=== PATIENT | female | born 1990 | race American Indian/Alaskan Native ===

== ENCOUNTER 2021-05-20 21:05 | Inpatient (IN) | payer MEDICAID ==
[2021-05-20] MEDS ORDERED: LACTATED RINGERS 1,000 ML IV SCH (21:15)
[2021-05-20] MEDS ORDERED: OXYTOCIN DRIP 30 UNITS/500 ML BAG IV SCH (22:00)
[2021-05-21 01:29] LABS: Basophils # (Auto) 0.1 K/mm3 (0.0-0.1); Basophils % (Auto) 0.5 % (0.0-1.8); Eosinophils # (Auto) 0.3 K/mm3 (0.0-0.4); Eosinophils % (Auto) 2.6 % (0.0-4.3); Hematocrit 30.5 % (30.3-42.9); Hemoglobin 9.8 gm/dl (10.1-14.3); Lymphocytes # (Auto) 2.9 K/mm3 (1.2-5.4); Mean Corpuscular HGB Conc 32 % (30-34); Mean Corpuscular Volume 84 fl (79-97); Monocytes # (Auto) 1.2 K/mm3 (0.0-0.8); Monocytes % (Auto) 8.6 % (0.0-7.3); Platelet Count 316 K/mm3 (140-440); Red Blood Count 3.61 M/mm3 (3.65-5.03); Red Cell Distribution Width 19.6 % (13.2-15.2)
[2021-05-21 01:51] LABS: Alanine Aminotransferase 7 units/L (7-56); Albumin 3.5 g/dL (3.9-5); Blood Urea Nitrogen 7 mg/dL (7-17); Calcium 8.6 mg/dL (8.4-10.2); Hemolysis Index 1; Uric Acid 4.8 mg/dL (3.5-7.6)
[2021-05-21 01:58] LABS: BUN/Creatinine Ratio 14
--- NOTE | 2021-05-21 02:56 | History and Physical Report ---
History of Present Illness Date of examination: 05/21/21 Date of admission: 05/20/21 23:09 Chief complaint: sent from clinic to [facility] for eval and delivery with frequent contractions History of present illness: at 41.2wks by LMP c/w u/s with limited care [facility]. Pt was sent by Dr. Garrett to be seen for non-reactive NST in clinic and needs repeat c/section with frequent contractions; Pt went via to ambulance to [facility] instead and they had no beds, called [facility] and asked if they could send pt here. Pelvic exam per report for OB avionics systems engineer MD states pt was not dilated however with frequent contractions. I accepted pt and she came via [employer]. pt denies leakage of fluid or vag bleeding or headache. pt admits to movement. Pt has been non-compliant and not taken any iron pills with known anemia. Pt quit smoking at 4months preg. Pt also now states that she has asthma and used inhaler daily these past 4days. labs with O positive, neg screen, hgb 9.2, rubella immune, RPR non-reactive, HIV negative and GC/Chlam negative. Pt states she took the 1hrgtt and clinic chart pt did not. NO results seen. Past History Past Medical History: other (anemia, asthma (not previously stated in records)) Past Surgical History: section (x2) Social history: smoking (quit at 4months) - Obstetrical History Expected Date of Delivery: 05/12/21 Actual Gestation: 41 Week(s) 2 Day(s) : 3 Hx # Term Pregnancies: 2 (both c/section, 1st for NRFHR) Number of Living Children: 2 Medications and Allergies Allergies Allergy/AdvReac Type Severity Reaction Status Date / Time No Known Allergies Allergy Verified 05/21/21 03:26 Active Meds: Active Medications Citric Acid/Sodium Citrate (Bicitra Oral Liqd 30ml) 30 ml PO ONCE ONE Stop: 05/20/21 21:12 Famotidine (Famotidine 20 Mg/2 Ml Inj) 20 mg IV ONCE ONE Stop: 05/20/21 21:12 Cefazolin Sodium (Ancef/Sterile Water 2 Gm/20 Ml) 2 gm in 20 mls @ 80 mls/hr IV PREOP NR; Protocol Lactated Ringer's (Lactated Ringers) 1,000 mls @ 2,250 mls/hr IV PREOP MECHE Stop: 05/21/21 21:42 Oxytocin/Sodium Chloride (Pitocin/Ns 30 Unit/500ml) 30 units in 500 mls @ 0 m ls/hr IV TITR MECHE; Protocol Metoclopramide HCl (Metoclopramide 10 Mg/2 Ml Inj) 10 mg IV ONCE ONE Stop: 05/20/21 21:12 Review of Systems All systems: negative (feeling ctx) - Vital Signs Vital signs: Vital Signs Pulse Pulse Ox 93 H 96 05/21/21 01:59 05/21/21 01:59 Temp Pulse Resp BP Pulse Ox 97.5 F L 89 16 107/64 97 05/21/21 02:00 05/21/21 02:44 05/21/21 02:00 05/21/21 02:01 05/21/21 02:44 - Physical Exam Breasts: Positive: deferred Cardiovascular: Regular rate Lungs: Positive: Normal air movement Abdomen: Positive: normal appearance, soft Uterus: Positive: enlarged (non-tender, gravid) - Obstetrical FHR: category 1 Uterine Contraction Monitor Mode: External Cervical Dilatation: 0 (per [facility] report) Uterine Contraction Pattern: Regular Results Result Diagrams: 05/21/21 01:13 05/21/21 01:13 Abnormal lab results 05/21/21 05/21/21 05/21/21 Range/Units 01:13 01:13 01:13 WBC 13.6 H (4.5-11.0) K/mm3 RBC 3.61 L (3.65-5.03) M/mm3 Hgb 9.8 L (10.1-14.3) gm/dl MCH 27 L (28-32) pg RDW 19.6 H (13.2-15.2) % Dyer % (Auto) 8.6 H (0.0-7.3) % Dyer # (Auto) 1.2 H (0.0-0.8) K/mm3 Seg Neutrophils # 9.2 H (1.8-7.7) K/mm3 Sodium 136 L (137-145) mmol/L Carbon Dioxide 20 L (22-30) mmol/L Creatinine 0.5 L (0.6-1.2) mg/dL Alkaline Phosphatase 151 H (35-129) units/L Lactate Dehydrogenase 184 H (91-180) units/L Albumin 3.5 L (3.9-5) g/dL All other labs normal. Assessment and Plan Post term pt at 41.2wks with previous section x2 and now with persistent contractions; Asymptomatic anemia; Non-compliant; H/O Asthma 1. Admit to labor and delivery for repeat section, brethine x1 dose until blood available 2. Send labs, including urine drug screen and cross match for 2units PRBC 3. Consents obtained, NICU and Anesthesiologist notified All questions encouraged and answered
[2021-05-21] MEDS ORDERED: ceFAZolin/Water 2 GM/20 ML 2 GM/20 ML SYRINGE IV NR (03:00)
[2021-05-21] MEDS ORDERED: LACTATED RINGERS 1,000 ML ONE ×2 (03:14→05:12)
[2021-05-21] MEDS ORDERED: TERBUTALINE 1 MG/1 ML INJ SUB-Q ONE (03:16)
[2021-05-21] MEDS ORDERED: SODIUM CHLORIDE 0.9% 500 ML 500 ML IV NR (03:28)
[2021-05-21] MEDS ORDERED: METOCLOPRAMIDE 10 MG/2 ML INJ IV ONE (03:30)
[2021-05-21] MEDS ORDERED: FAMOTIDINE 20 MG/2 ML INJ IV ONE (03:30)
[2021-05-21] MEDS ORDERED: BICITRA ORAL LIQD 30ML PO ONE (03:30)
[2021-05-21] MEDS ORDERED: PROMETHAZINE 25 MG RECT SUPP PR PRN (04:05)
[2021-05-21] MEDS ORDERED: NALOXONE 0.4 MG/1 ML INJ IV PRN ×2 (04:05→06:59)
[2021-05-21] MEDS ORDERED: PROMETHAZINE 25 MG TAB PO PRN (04:05)
[2021-05-21] MEDS ORDERED: HYDROmorphone 1 MG/1 ML INJ IV PRN (04:05)
[2021-05-21] MEDS ORDERED: ONDANSETRON 4 MG/2 ML INJ IV PRN (04:05)
[2021-05-21] MEDS ORDERED: NalbUPHINE 10 MG/1 ML INJ IV PRN (04:05)
[2021-05-21] MEDS ORDERED: diphenhydrAMINE 50 MG/ML VIAL IV PRN (04:05)
--- NOTE | 2021-05-21 04:06 | Anesthesia Day of Surgery ---
Anesthesia Day of Surgery - Day of Surgery Patient Examined: Yes Patient H&P Reviewed: Yes Patient is NPO: Yes Beta Blockers: No Cardiac Clearance: No Pulmonary Clearance: No Tristan's Test: N/A
--- NOTE | 2021-05-21 04:07 | Anesthesia Consultation ---
Anesthesia Consult and Med Hx Date of service: 05/21/21 - Airway Anesthetic Teeth Evaluation: Good ROM Head & Neck: Adequate Mental/Hyoid Distance: Adequate Mallampati Class: Class II Intubation Access Assessment: Probably Good - Pulmonary Exam CTA: Yes - Cardiac Exam Cardiac Exam: RRR - Pre-Operative Health Status ASA Pre-Surgery Classification: ASA2 Proposed Anesthetic Plan: Spinal Nerve Block: TAP - Pulmonary Hx Smoking: Yes Hx Asthma: Yes COPD: No Hx Pneumonia: No Hx Sleep Apnea: No - Cardiovascular System Hx Hypertension: No Hx Heart Attack/AMI: No Hx Angina: No - Gastrointestinal Hx Gastroesophageal Reflux Disease: No - Endocrine Hx Renal Disease: No Hx End Stage Renal Disease: No Hx Liver Disease: No Hx Insulin Dependent Diabetes: No Hx Non-Insulin Dependent Diabetes: No - Additional Comments Anesthesia Medical History Comments: C/S x2
[2021-05-21] MEDS ORDERED: KETOROLAC 30 MG/1 ML INJ ONE (04:15)
[2021-05-21] MEDS ORDERED: BUPIVACAINE/PF (0.5%) 5 MG/1 ML 30 ML VIAL INFILTRATI ONE (04:15)
[2021-05-21] MEDS ORDERED: ONDANSETRON 4 MG/2 ML INJ ONE (04:15)
[2021-05-21] MEDS ORDERED: dexAMETHasone 20 MG/5 ML VIAL ONE (04:15)
[2021-05-21] MEDS ORDERED: ALBUTEROL 8.5 GM MDI INHALATION IH ONE (04:40)
[2021-05-21] MEDS ORDERED: PHENYLEPHRINE/NS 1,000 MCG/10 ML SYRINGE (OR USE) IV ONE (04:40)
[2021-05-21] MEDS ORDERED: ePHEDrine SULFATE 50 MG/1 ML INJ ONE (04:56)
[2021-05-21 05:14] LABS: Amphetamine Screen,Urine PRESUMPTIVE NEGATIVE; Benzodiazepines Screen,Urine PRESUMPTIVE NEGATIVE; Cannabinoid Screen,Urine PRESUMPTIVE POSITIVE; Cocaine Screen,Urine PRESUMPTIVE NEGATIVE; Methadone Screen,Urine PRESUMPTIVE NEGATIVE; Opiate Screen,Urine PRESUMPTIVE NEGATIVE
[2021-05-21] MEDS ORDERED: miSOPROStol 200 MCG TAB ONE (05:41)
[2021-05-21] MEDS ORDERED: fentaNYL 100 MCG/2 ML INJ ONE (06:07)
--- NOTE | 2021-05-21 06:26 | Progress Note ---
Spinal Anesthesia Block - Spinal Anesthesia Block Start Time: 04:20 Stop Time: 04:30 Performed by:: ANITRA CASTREJON Procedure: Spinal anesthesia block is being performed for [C/S]. H&P, labs have been reviewed. Patient's questions and concerns have been answered. Informed consent has been performed. Timeout has was performed. Patient in sitting position on side of bed. Sterile prep and drape was performed. 3 mL 1% lidocaine skin wheal at L [3]-L [4]. Needle introducer advanced. 25-gauge spinal needle advanced, [+] CSF [-] blood. [Marcaine 10mg and Precedex 5mcg] Spinal dose was given. All needles removed. Patient tolerated procedure well.
--- NOTE | 2021-05-21 06:58 | Procedure Note ---
OB Delivery Note - Delivery Date of Delivery: 05/21/21 Surgeon: CAMILLE MULLIGAN Estimated blood loss: other (657cc) - Section Preop diagnosis: repeat , other (Frequent contractions, ?early labor; IUP at 41.3wks; Anemia; Non-compliant) Postop diagnosis: same (and partial abruption; extensive intra-abdominal adhesions with uterus to anterior abd wall and omentum and bladder peritoneum) section procedure: repeat low transverse Disposition: floor Complications: other Narrative: Date: 05/21/21 Surgeon: Camille Mulligan MD Preop Dx: IUP at 41.3wks, previous c/section x2 and frequent contractions, ?early labor; Anemia; Non-compliant Postop Dx: same and partial abruption Procedure : Repeat low transverse and lysis of extensive adhesions Anesthesia: Spinal Intake: 2500cc Output: 50cc clear urine EBL: 657cc via QBL After the risks, benefits and alternatives of procedure discussed, patient signed consents and was taken to the operating room. Pt was given spinal anesthesia. After same was adequate, patient was prepped and draped in the usual sterile fashion. Juarez catheter placed and draining clear urine. Pt was given prophylactic antibiotic per protocol and time out was done Pfannenstiel skin incision was made below the upper c/section scar and taken s harply to the fascia and the incision extended using electrocautery. Superior edge of the fascia was grasped with elton clamps and the rectus muscle using blunt dissection and also using electrocautery. Lower portion of the fascia also using electrocautery. Rectus muscle in the midline and peritoneal cavity entered sharply and then dense adhesions noted to bladder peritoneum inferiorly and anterior uterine wall adherent partially to rectus fascia. Sharp dissection done enough to visualize the bladder entirely and allow bradly retractor placed without difficulty. The bladder flap was partially created sharply using metzenbaum scissors. Lower uterine segment then entered transversely and amniotic sac bluntly thru partially placenta. Uterine incision extended manually. delivered vertex, nuchal cord x1 reduced and infant bulb suctioned, cord clamped and baby handed to waiting pediatricians. Anterior Placenta then delivered completely and uterine cavity cleared of all clots and debri. The uterus was not exteriorized and closed in 2 layers using 0-monocryl suture in a running locked fashion and then an additional layer of imbrication suture. A third figure of 8 sutures placed to achieve hemostasis to 3 area that were oozing anteriorly. Urine output remained clear per anesthesia. The adnexa were visualized and normla. Excellent hemostasis noted. The gutters were cleared of clots and debri and anterior peritoneum and rectus muscle closed with scar tissue using 0-vicryl suture. Rectus fascia closed with 0-vicryl suture and subcutaneous tissue copiously irrigated with normal saline and re-approximated using 3-0 vicryl suture. Excellent hemostasis remains. The skin was closed with 4-0 monocryl suture and steristrips placed with pressure dressing. Sponge, lap, instrument and needle counts x2 were normal. Patient tolerated the procedure well and was taken to recovery room stable. Pt given cytotec 800mcg per rectum prophylaxis with severe anemia and current abruption. Findings: Viable male , APGARS 8/9 and weight 3110g. Normal shaped uterus with anterior wall scared, normal tubes and ovaries. Pathology: placenta - Infant A at 1 minute: 8 at 5 minutes: 9 Gender: Male (clear amniotic fluid, partial separation of placenta; EFW 3110g)
[2021-05-21] MEDS ORDERED: IBUPROFEN 600 MG TAB PO PRN (06:59)
[2021-05-21] MEDS ORDERED: LANOLIN/ZINC/DIMETHICONE (LANSINOH) 7 GM TP PRN (06:59)
[2021-05-21] MEDS ORDERED: WITCH HAZEL/ GLYCERIN PAD TP PRN (06:59)
[2021-05-21] MEDS ORDERED: SIMETHICONE 80 MG CHEW TAB PO PRN (06:59)
[2021-05-21] MEDS ORDERED: MAGNESIUM HYDROXIDE (MOM) ORAL LIQD UDC PO PRN (06:59)
[2021-05-21] MEDS ORDERED: HYDROCORTISONE 25 MG RECTAL SUPP PR PRN (06:59)
[2021-05-21] MEDS ORDERED: SENNOSIDES 8.6 MG TAB PO PRN (06:59)
[2021-05-21] MEDS ORDERED: OXYTOCIN DRIP 30 UNITS/500 ML BAG IV SCH (07:00)
[2021-05-21] MEDS: PRENATAL VIT27-FE FUMARATE-FOLIC ACID VIT TAB PO SCH (10:14)
[2021-05-21] MEDS: KETOROLAC 30 MG/1 ML INJ IV PRN ×2 (10:14→21:37)
[2021-05-21] MEDS: FERROUS SULFATE 325 MG TAB PO SCH (10:14)
[2021-05-21] MEDS: MORPHINE 4 MG/1 ML INJ IV PRN ×2 (14:43→19:58)
[2021-05-21 18:30] LABS: Hemoglobin 9.4 gm/dl (10.1-14.3)
[2021-05-22] MEDS: oxyCODONE /ACETAMINOPHEN 5-325MG TAB PO PRN ×4 (00:54→17:17)
[2021-05-22] MEDS: PRENATAL VIT27-FE FUMARATE-FOLIC ACID VIT TAB PO SCH (11:30)
[2021-05-22] MEDS: FERROUS SULFATE 325 MG TAB PO SCH (11:30)
--- NOTE | 2021-05-22 12:12 | Post Anesthesia Evaluation ---
- Post Anesthesia Evaluation Patient Participated: Yes Airway Patent: Yes Stable Respiratory Function: Yes Nausea/Vomiting: No Temp > 96.8F: Yes Pain Manageable: Yes Adequeate Hydration: Yes Anesthesia Complications: No Block Receding Appropriately: Yes Patient on Ventilator: No
--- NOTE | 2021-05-22 13:15 | Progress Note ---
Assessment and Plan A: /postop day 1 S/P repeat section with lysis of adhesions. Anemia. Drug screen positive for marijuana. P: Iron supplementation. Case management consult. Advised patient to ambulate. Continue routine /postop care. Subjective - Subjective Date of service: 05/22/21 Principal diagnosis: /postop day 1 S/P repeat LTCS Patient reports: appetite normal, voiding normally, pain well controlled, flatus, ambulating normally, no dizzy ambulation, no nauseated Rodessa: doing well Objective - Vital Signs Latest vital signs: Vital Signs Temp Pulse Resp BP BP Pulse Ox Pulse Ox 05/22/21 09:15 99 05/22/21 08:05 97.9 F 89 20 109/54 05/22/21 06:13 18 05/22/21 04:43 97.8 F 76 20 115/53 97 05/22/21 00:54 18 98 05/22/21 00:07 98.1 F 71 20 110/52 100 05/21/21 21:37 18 98 05/21/21 20:25 98 05/21/21 20:08 97.5 F L 77 20 116/62 96 05/21/21 19:58 18 99 05/21/21 15:38 78 18 106/63 97 Intake and Output 05/21/21 05/22/21 05/22/21 23:59 07:59 15:59 Intake Total 660 570 Output Total 1100 Balance -440 570 Intake: Oral 660 570 Output: Urine 1100 Indwelling Catheter 600 Void 500 Other: Total, Intake Amount 120 120 Total, Output Amount 300 # Voids Void 1 1 - Exam Cardiovascular: Present: Regular rate Lungs: Present: Clear to auscultation Abdomen: Present: normal appearance, soft, normal bowel sounds. Absent: distention, tenderness, guarding, rigidity Uterus: Present: normal, firm, fundal height below umbilicus (FH at 1 FB below umbilicus). Absent: bogginess, tenderness Extremities: Present: normal. Absent: tenderness, edema Incision: Present: normal, dry, intact - Labs Labs: Abnormal lab results 05/21/21 Range/Units 18:09 Hgb 9.4 L (10.1-14.3) gm/dl Hct 29.0 L (30.3-42.9) %
[2021-05-22] MEDS: IBUPROFEN 800 MG TAB PO PRN ×2 (15:00→22:16)
[2021-05-23] MEDS: oxyCODONE /ACETAMINOPHEN 5-325MG TAB PO PRN ×2 (00:18→09:53)
[2021-05-23] MEDS: IBUPROFEN 800 MG TAB PO PRN ×2 (06:40→15:13)
[2021-05-23] MEDS: PRENATAL VIT27-FE FUMARATE-FOLIC ACID VIT TAB PO SCH (09:54)
[2021-05-23] MEDS: FERROUS SULFATE 325 MG TAB PO SCH (09:54)
[2021-05-23] MEDS ORDERED: medroxyPROGESTERone ACETATE 150 MG/ML SYRINGE IM ONE (13:16)
--- NOTE | 2021-05-23 13:20 | Progress Note ---
Assessment and Plan A: POD #2 Asymptomatic Anemia P: Follow Routine PostOp Orders Continue PO FeSO4 as ordered Depo Provera 150mg IM x 1 dose prior to discharge D/C home today RTO in one week Subjective - Subjective Date of service: 05/23/21 Principal diagnosis: /postop day 1 S/P repeat LTCS Patient reports: appetite normal, voiding normally, pain well controlled, flatus, bowel movement, ambulating normally : doing well, bottle feeding (and bottlefeeding) Objective - Vital Signs Latest vital signs: Vital Signs Temp Pulse Resp BP BP Pulse Ox Pulse Ox 05/23/21 08:20 98.2 F 97 H 20 117/70 05/23/21 08:00 99 05/23/21 00:07 97.7 F 78 20 140/74 100 05/22/21 17:23 97.8 F 82 20 98/57 Intake and Output 05/22/21 05/23/21 05/23/21 22:59 06:59 14:59 Intake Total 320 480 360 Balance 320 480 360 Intake: Oral 320 360 Intake, Free Water 480 Other: Total, Intake Amount 320 360 # Voids Void 1 2 1 - Exam Breasts: Present: normal Cardiovascular: Present: Regular rate Lungs: Present: Clear to auscultation, Normal air movement Abdomen: Present: normal appearance, soft, normal bowel sounds Uterus: Present: normal, firm, fundal height below umbilicus Extremities: Present: normal Incision: Present: normal, dry, intact
--- NOTE | 2021-05-23 13:21 | Discharge Summary ---
Providers - Providers Date of Admission: 05/20/21 23:09 Date of discharge: 05/23/21 Attending physician: TIFFANIE MULLIGAN 05/21/21 15:21 Consult to Case Management [CONS] Routine Services Needed at Discharge: Link Trainer Notified:: NO Phone number called:: [phone] Was contact made?: No Time called:: 15:42 Comment:: SUBSTANCE ABUSE SEE CHART Additional Physician Instructions: see CHART.. 05/22/21 10:27 Consult to Case Management [CONS] Routine Services Needed at Discharge: Link Trainer Additional Physician Instructions: Drug screen positive for marijuana Primary care physician: TIFFANIE MULLIGAN Hospitalization Reason for admission: section Delivery: Procedure: repeat low transverse Episiotomy: none Laceration: none Incision: normal, dry, intact Other procedures: none complications: none Discharge diagnosis: IUP at term delivered baby: male Condition at discharge: Good Disposition: 01 HOME / SELF CARE / HOMELESS Plan - Discharge Medications Prescriptions: Ibuprofen [Motrin] 800 mg PO Q8HR PRN #40 tablet PRN Reason: Pain, Moderate (4-6) oxyCODONE /ACETAMINOPHEN [Percocet 5/325] 1 tab PO Q4HR PRN #30 tab PRN Reason: Pain , Severe (7-10) - Provider Discharge Summary Activity: routine, no sex for 6 weeks, no heavy lifting 4 weeks, no strenuous exercise Diet: routine Instructions: routine Additional instructions: [] Smoking cessation referral if applicable(refer to patient education folder for contact #) [] Refer to [facility] Booklet Call your doctor immediately for: * Fever > 100.5 * Heavy vaginal bleeding ( >1 pad per hour) * Severe persistent headache * Shortness of breath * Reddened, hot, painful area to leg or breast * Drainage or odor from incision. * Keep incision clean and dry at all times and follow doctor's instructions regarding bathing/showering - Follow up plan Follow up: TIFFANIE MULLIGAN MD [Primary Care Provider] - 7 Days Forms: [facility] Discharge Summary
[2021-05-23 16:23] VITALS: BP 103/57
== END 2021-05-23 17:01 | disposition home or self-care (01) | DRG 765 ==
LOC: 3A 21:05 → UNDOADMIN 21:05 → LD 23:09 → OB 05-21 09:05
PROVIDERS: ADMIT Obstetrics & Gynecology; ATTEND Obstetrics & Gynecology
PROC: 10D00Z1 Extraction of Products of Conception, Low, Open Approach (ICD-10-PCS; principal; 2021-05-21)
PROC: 0DNW0ZZ Release Peritoneum, Open Approach (ICD-10-PCS; 2021-05-21)
DX: O34.211 Maternal care for low transverse scar from previous cesarean delivery (principal); O45.93 Premature separation of placenta, unspecified, third trimester; Z37.0 Single live birth; Z87.891 Personal history of nicotine dependence; J45.909 Unspecified asthma, uncomplicated; O99.52 Diseases of the respiratory system complicating childbirth; Z3A.41 41 weeks gestation of pregnancy; O90.81 Anemia of the puerperium; Z91.14 Patient's other noncompliance with medication regimen; O99.62 Diseases of the digestive system complicating childbirth; K66.0 Peritoneal adhesions (postprocedural) (postinfection); O69.81X0 Labor and delivery complicated by cord around neck, without compression, not applicable or unspecified
CPT/HCPCS: 36415; 80053; 80307; 83615; 84550; 85014; 85018; 85025; 86850; 86900; 86901; 86920; 88307; G0378; J1050; J1100; J1885; J2270; J2370; J2405; J3010; J3490; J7120